=== PATIENT | female | born 1965 | race Caucasian/White ===

== ENCOUNTER 2016-12-11 03:03 | Emergency (ER) | payer BC ==
[2016-12-11] MEDS ORDERED: Ketorolac 60 MG/2 ML SDV IM ONE (04:09)
--- NOTE | 2016-12-11 05:16 | EDM.PDOC ---
ED HPI GENERAL MEDICAL PROBLEM - General Chief Complaint: Upper Extremity Injury/Pain Stated Complaint: LEFT ARM INJURY Time Seen by Provider: 12/11/16 05:15 Source of Information: Reports: Patient - History of Present Illness INITIAL COMMENTS - FREE TEXT/NARRATIVE: HISTORY AND PHYSICAL: History of present illness: []Patient was doing some yard work today and now complains of left hand pain and swelling she states pain is 6 out of 10 nonradiating involving hand worsened with movement or making a fist there is no injury or trauma no redness warmth or swelling no open lesion or exudates No other symptomology such as fever nausea vomiting chills sweats no chest pain shortness breath headache dizziness palpitation about a urine symptoms Patient seems to exaggerate pain medicines on arrival for exam she was sitting calm is a rounded the corner into her room but began to groan as she noticed I was there to examine her. Also during the exam her abdomen was quite tender to the touch however with distraction and conversation outside of her hand pain she would hit the arm of the chair with the affected hand without any pain She sees Dr. Sorensen for chronic pain Review of systems: As per history of present illness and below otherwise all systems reviewed and negative. Past medical history: As per history of present illness and as reviewed below otherwise noncontributory. Surgical history: As per history of present illness and as reviewed below otherwise noncontributory. Social history: No reported history of drug or alcohol abuse. Family history: As per history of present illness and as reviewed below otherwise noncontributory. Physical exam: HEENT: Atraumatic, normocephalic, pupils reactive, negative for conjunctival pallor or scleral icterus, mucous membranes moist, throat clear, neck supple, nontender, trachea midline. Lungs: Clear to auscultation, breath sounds equal bilaterally, chest nontender. Heart: S1S2, regular, negative for clicks, rubs, or JVD. Abdomen: Soft, nondistended, nontender. Negative for masses or hepatosplenomegaly. Negative for costovertebral tenderness. Pelvis: Stable nontender. Genitourinary: Deferred. Rectal: Deferred. Extremities: Atraumatic, negative for cords or calf pain. Neurovascular unremarkable. Neuro: Awake, alert, oriented. Cranial nerves II through XII unremarkable. Cerebellum unremarkable. Motor and sensory unremarkable throughout. Exam nonfocal. Diagnostics: []X-ray left hand CBC, uric acid, CRP Therapeutics: []Toradol 60 IM Rest ice Toradol 10 mg by mouth 3 times a day when necessary #15 no refill Splint Impression: []Left hand pain Definitive disposition and diagnosis as appropriate pending reevaluation and review of above. left hand Pain Score (Numeric/FACES): 10 - Related Data Allergies Allergy/AdvReac Type Severity Reaction Status Date / Time Oral steroid Allergy Disorientat Uncoded 12/11/16 03:14 ion Home Meds: Home Meds ALPRAZolam [Xanax] 0.25 mg PO ASDIRECTED 12/11/16 [History] Orphenadrine [Norflex] 100 mg PO DAILY 12/11/16 [History] Sertraline [Zoloft] 50 mg PO DAILY 12/11/16 [History] Past Medical History - Past Health History Medical/Surgical History: Denies Medical/Surgical History Cardiovascular History: Reports: None Respiratory History: Reports: None Gastrointestinal History: Reports: None Genitourinary History: Reports: None [employer] 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 Musculoskeletal History: hx: Fracturing Tailbone Neurological History: Reports: None Psychiatric History: Reports: Anxiety, Depression Endocrine/Metabolic History: Reports: None Hematologic History: Reports: None Immunologic History: Reports: None Oncologic (Cancer) History: Reports: None Dermatologic History: Reports: None - Infectious Disease History Infectious Disease History: Reports: Chicken Pox, Measles, Mumps - Past Surgical History Head Surgeries/Procedures: Reports: None GI Surgical History: Reports: Cholecystectomy Other GI Surgeries/Procedures: Lap Cholecystectomy, Abdominoplasty about 1 year ago Female Surgical History: Reports: Hysterectomy Other Female Surgeries/Procedures: Laparoscopic Hysterectomy Social & Family History - Family History Family Medical History: Noncontributory - Tobacco Use Smoking Status *Q: Never Smoker Years of Tobacco use: 1 - Caffeine Use Caffeine Use: Reports: Soda - Alcohol Use Days Per Week of Alcohol Use: 1 Number of Drinks Per Day: 1 Total Drinks Per Week: 1 - Recreational Drug Use Recreational Drug Use: No Drug Use in Last 12 Months: No Review of Systems - Review of Systems Review Of Systems: ROS reveals no pertinent complaints other than HPI. ED EXAM, GENERAL - Physical Exam Exam: See Below Course - Vital Signs Last Recorded V/S: Last Vital Signs Temp 36.4 C 12/11/16 03:14 Pulse 77 12/11/16 03:14 Resp 18 12/11/16 03:14 BP 166/91 H 12/11/16 03:14 Pulse Ox 98 12/11/16 03:14 - Orders/Labs/Meds Orders: Active Orders 24 hr Category Date Time Status Hand 2V Lt [CR] Stat Exams 12/11/16 03:15 Taken Labs: Laboratory Tests 12/11/16 12/11/16 Range/Units 04:18 04:18 WBC 8.84 (4.0-11.0) K/uL RBC 4.50 (4.30-5.90) M/uL Hgb 13.7 (12.0-16.0) g/dL Hct 40.8 (36.0-46.0) % MCV 90.7 (80.0-98.0) fL MCH 30.4 (27.0-32.0) pg MCHC 33.6 (31.0-37.0) g/dL RDW Std Deviation 47.5 (28.0-62.0) fl RDW Coeff of Justine 14 (11.0-15.0) % Plt Count 168 (150-400) K/uL MPV 9.80 (7.40-12.00) fL Neut % (Auto) 77.8 (48.0-80.0) % Lymph % (Auto) 14.3 L (16.0-40.0) % [place] % (Auto) 6.3 (0.0-15.0) % Eos % (Auto) 1.4 (0.0-7.0) % Baso % (Auto) 0.2 (0.0-1.5) % Neut # (Auto) 6.9 H (1.4-5.7) K/uL Lymph # (Auto) 1.3 (0.6-2.4) K/uL [place] # (Auto) 0.6 (0.0-0.8) K/uL Eos # (Auto) 0.1 (0.0-0.7) K/uL Baso # (Auto) 0.0 (0.0-0.1) K/uL Nucleated RBC % 0.0 /100WBC Nucleated RBCs # 0 K/uL Uric Acid 5.1 (2.1-6.2) mg/dL C-Reactive Protein 0.11 (0.0-0.5) mg/dL Meds: Medications Discontinued Medications Generic Name Dose Route Start Last Admin Trade Name Anne PRMadan Reason Stop Dose Admin Ketorolac Tromethamine 60 mg 12/11/16 04:09 12/11/16 04:23 Toradol IM 12/11/16 04:10 60 mg ONETIME ONE Administration Departure - Departure Time of Disposition: 05:19 Disposition: Home, Self-Care 01 Condition: Good Clinical Impression: Left hand pain - Discharge Information Forms: ED Department Discharge Additional Instructions: Splint for comfort Medication as prescribed Rest Ice 20 minute intervals 3 times daily Follow-up with primary care in 2 weeks sooner as needed The following information is given to patients seen in the emergency department who are being discharged to home. This information is to outline your options for follow-up care. We provide all patients seen in our emergency department with a follow-up referral. The need for follow-up, as well as the timing and circumstances, are variable depending upon the specifics of your emergency department visit. If you don't have a primary care physician on staff, we will provide you with a referral. We always advise you to contact your personal physician following an emergency department visit to inform them of the circumstance of the visit and for follow-up with them and/or the need for any referrals to a consulting specialist. The emergency department will also refer you to a specialist when appropriate. This referral assures that you have the opportunity for follow-up care with a specialist. All of these measure are taken in an effort to provide you with optimal care, which includes your follow-up. Under all circumstances we always encourage you to contact your private physician who remains a resource for coordinating your care. When calling for follow-up care, please make the office aware that this follow-up is from your recent emergency room visit. If for any reason you are refused follow-up, please contact the [facility] emergency department at and asked to speak to the emergency department charge nurse. - My Orders Last 24 Hours: My Active Orders 12/11/16 03:15 Hand 2V Lt [CR] Stat - Assessment/Plan Last 24 Hours: My Active Orders 12/11/16 03:15 Hand 2V Lt [CR] Stat
[2016-12-11 05:34] VITALS: BP 136/76
--- NOTE | 2016-12-12 12:35 | CR ---
EXAM DATE: 12/11/16 PATIENT'S AGE: 51 Patient: MADDIE KUMAR Facility: [place], [place] Site . Site : [id number] Study: XRay Extremity Left [id number]/13/2017 3:25:52 AM Ordering Physician: Doctor Orlando Final Report: Indication: Hand/wrist swelling. No injury. Technique: Left hand two views. Comparison: None. Findings: No acute fracture or dislocation. No discrete lytic or sclerotic osseous lesions. There is soft tissue swelling about the wrist. No radiopaque foreign body evident. Impression: No acute or suspicious osseous abnormality. Soft tissue swelling about the wrist. Dictated by Joe Gutierrez MD @ 12/11/2016 3:35:07 AM Dictated by: Joe Gutierrez MD @ 12/11/2016 03:35:15 (Electronic Signature) Report Signed by Proxy. MTDAnkita
== END 2016-12-11 05:33 | disposition home or self-care (01) ==
LOC: MW.ED 03:03
DX: M79.642 Pain in left hand (principal); F41.9 Anxiety disorder, unspecified; F32.9 Major depressive disorder, single episode, unspecified; Z90.49 Acquired absence of other specified parts of digestive tract; Z79.899 Other long term (current) drug therapy; Z90.710 Acquired absence of both cervix and uterus
CPT/HCPCS: 36415; 73120; 84550; 85025; 86140; 96372; 99283; J1885

== ENCOUNTER 2019-05-23 20:39 | Observation (INO) | payer BC, OTHER ==
[2019-05-23] MEDS ORDERED: Ondansetron 4 MG/2 ML SDV IVPUSH ONE (22:02)
[2019-05-23] MEDS ORDERED: Sodium Chloride 0.9% 1,000 ML IV ONE ×2 (22:02→23:53)
[2019-05-23] MEDS ORDERED: Morphine 4 MG/ML Syringe IVPUSH ONE (22:04)
[2019-05-23 22:18] LABS: BLOOD UREA NITROGEN,BUN 18 mg/dL (7.0-18.0); CARBON DIOXIDE,CO2 23.9 mmol/L (21.0-32.0); CHLORIDE,CL 108 mmol/L (98-107); GLUCOSE RANDOM 97 mg/dL (74-106); LIPASE 588 U/L (73-393); SODIUM,NA 143 mmol/L (136-145)
[2019-05-23] MEDS ORDERED: Iopamidol 755 MG/ML 500 ML Multipack Bottle IVPUSH ONE (22:57)
--- NOTE | 2019-05-23 23:20 | CT ---
INDICATION: Left lower back pain radiating to lower abdomen TECHNIQUE: CT Abdomen and pelvis with i.v. contrast. Coronal and sagittal reformats were obtained. CONTRAST: 100 mL Isovue 370 COMPARISON: 08/18/2013 FINDINGS: Lower chest: There is a calcified granuloma measuring 11 mm seen in the medial left lower lobe. Liver: Unremarkable. Spleen: Moderate stable splenomegaly is noted with the spleen measuring 14.2 cm. Pancreas: Unremarkable. Gallbladder: Previous cholecystectomy noted without significant intra- or extrahepatic biliary ductal dilatation seen. Kidney: Small cortical cysts are present within the right kidney measuring less than 1 cm. Adrenal: Unremarkable. Bowel: Unremarkable. The appendix is normal in appearance and size. Vascular: Unremarkable. Lymph: Unremarkable. Peritoneum: Unremarkable. No pneumoperitoneum is seen. No significant ascites is noted. Pelvis: The patient is status post prior hysterectomy. Soft tissue: Unremarkable. Bone: There is a stable sclerotic lesion measuring 1.3 cm and the left acetabular roof, likely a bone island. IMPRESSION: 1. Moderate stable splenomegaly is noted with the spleen measuring 14.2 cm. Dictated by Mono Estrada MD @ 05/23/2019 11:17:58 PM Please note that all CT scans at this facility use dose modulation, iterative reconstruction, and/or weight-based dosing when appropriate to reduce radiation dose to as low as reasonably achievable. Dictated by: Mono Estrada MD @ 05/23/2019 23:18:30 (Electronically Signed)
--- NOTE | 2019-05-23 23:57 | EDM.PDOC ---
ED HPI GENERAL MEDICAL PROBLEM - General Chief Complaint: Abdominal Pain Stated Complaint: SEVERE BACK PAIN AND CRAMPING Time Seen by Provider: 05/23/19 21:30 - History of Present Illness INITIAL COMMENTS - FREE TEXT/NARRATIVE: Pt with pmh of chronic nausea and GERD presents 2 days of progressively worsening upper abdominal pain and back pain associated with nausea and vomiting. NO fevers or any other symptoms Left Back Pain Score (Numeric/FACES): 10 - Related Data Allergies Allergy/AdvReac Type Severity Reaction Status Date / Time Oral steroid Allergy Disorientat Uncoded 05/23/19 21:21 ion Home Meds: Home Meds Losartan/Hydrochlorothiazide [Losartan-HCTZ 50-12.5 MG] 1 each PO DAILY [History] Ondansetron HCl [Zofran] 8 mg PO ASDIRECTED 05/23/19 [History] Ranitidine HCl [Ranitidine] 300 mg PO BEDTIME 05/23/19 [History] Past Medical History - Past Health History Medical/Surgical History: Denies Medical/Surgical History HEENT History: Reports: None Cardiovascular History: Reports: [place] Respiratory History: Reports: None Gastrointestinal History: Reports: None Genitourinary History: Reports: None 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 Musculoskeletal History: hx: Fracturing Tailbone Neurological History: Reports: None Psychiatric History: Reports: Anxiety, Depression Endocrine/Metabolic History: Reports: None Hematologic History: Reports: None Immunologic History: Reports: None Oncologic (Cancer) History: Reports: None Dermatologic History: Reports: None - Infectious Disease History Infectious Disease History: Reports: None - Past Surgical History Head Surgeries/Procedures: Reports: None GI Surgical History: Reports: Cholecystectomy Female Surgical History: Reports: Hysterectomy Social & Family History - Family History Family Medical History: Noncontributory - Tobacco Use Smoking Status *Q: Current Every Day Smoker Years of Tobacco use: 6 Packs/Tins Daily: 0.1 - Caffeine Use Caffeine Use: Reports: Soda - Recreational Drug Use Recreational Drug Use: Yes Drug Use in Last 12 Months: Yes Recreational Drug Type: Reports: Marijuana/Hashish Recreational Drug Use Frequency: Daily ED ROS GENERAL - Review of Systems Review Of Systems: See Below Constitutional: Reports: Fatigue HEENT: Reports: No Symptoms Respiratory: Reports: No Symptoms Cardiovascular: Reports: No Symptoms GI/Abdominal: Reports: Abdominal Pain, Nausea, Vomiting Musculoskeletal: Reports: Back Pain Skin: Reports: No Symptoms Neurological: Reports: No Symptoms ED EXAM, GI/ABD - Physical Exam Exam: See Below General Appearance: Alert, No Apparent Distress Head: Atraumatic, Normocephalic Respiratory/Chest: No Respiratory Distress, Lungs Clear, Normal Breath Sounds Cardiovascular: Normal Peripheral Pulses, Regular Rate, Rhythm, No Edema GI/Abdominal Exam: Tender. No: Rigid, Rebound Back Exam: Other (muscle tenderness) Skin Exam: Warm, Dry, Intact Course - Vital Signs Last Recorded V/S: Last Vital Signs Temp 97.7 F 05/23/19 21:19 Pulse 57 L 05/23/19 23:11 Resp 18 05/23/19 23:11 BP 137/82 05/23/19 23:11 Pulse Ox 98 05/23/19 23:11 - Orders/Labs/Meds Labs: Laboratory Tests 05/23/19 05/23/19 05/23/19 Range/Units 20:50 21:35 21:35 WBC 7.28 (4.0-11.0) K/uL RBC 4.60 (4.30-5.90) M/uL Hgb 14.1 (12.0-16.0) g/dL Hct 41.4 (36.0-46.0) % MCV 90.0 (80.0-98.0) fL MCH 30.7 (27.0-32.0) pg MCHC 34.1 (31.0-37.0) g/dL RDW Std Deviation 46.6 (28.0-62.0) fl RDW Coeff of Justine 14 (11.0-15.0) % Plt Count 222 (150-400) K/uL MPV 10.10 (7.40-12.00) fL Neut % (Auto) 63.7 (48.0-80.0) % Lymph % (Auto) 27.7 (16.0-40.0) % [place] % (Auto) 6.2 (0.0-15.0) % Eos % (Auto) 2.1 (0.0-7.0) % Baso % (Auto) 0.3 (0.0-1.5) % Neut # (Auto) 4.6 (1.4-5.7) K/uL Lymph # (Auto) 2.0 (0.6-2.4) K/uL [place] # (Auto) 0.5 (0.0-0.8) K/uL Eos # (Auto) 0.2 (0.0-0.7) K/uL Baso # (Auto) 0.0 (0.0-0.1) K/uL Nucleated RBC % 0.0 /100WBC Nucleated RBCs # 0 K/uL Sodium 143 (136-145) mmol/L Potassium 4.0 (3.5-5.1) mmol/L Chloride 108 H (98-107) mmol/L Carbon Dioxide 23.9 (21.0-32.0) mmol/L BUN 18 (7.0-18.0) mg/dL Creatinine 0.8 (0.6-1.0) mg/dL Est Cr Clr Drug Dosing 59.09 mL/min Estimated GFR (MDRD) > 60.0 ml/min Glucose 97 (74-106) mg/dL Calcium 8.8 (8.5-10.1) mg/dL Total Bilirubin 0.3 (0.2-1.0) mg/dL AST 20 (15-37) IU/L ALT 43 (14-63) IU/L Alkaline Phosphatase 50 (46-116) U/L Total Protein 7.0 (6.4-8.2) g/dL Albumin 3.6 (3.4-5.0) g/dL Globulin 3.4 (2.6-4.0) g/dL Albumin/Globulin Ratio 1.1 (0.9-1.6) Lipase 588 H (73-393) U/L Urine Color YELLOW Urine Appearance CLEAR Urine pH 5.5 (5.0-8.0) Ur Specific [place] 1.025 (1.001-1.035) Urine Protein NEGATIVE (NEGATIVE) mg/dL Urine Glucose (UA) NEGATIVE (NEGATIVE) mg/dL Urine Ketones NEGATIVE (NEGATIVE) mg/dL Urine Occult Blood NEGATIVE (NEGATIVE) Urine Nitrite NEGATIVE (NEGATIVE) Urine Bilirubin NEGATIVE (NEGATIVE) Urine Urobilinogen 0.2 (<2.0) EU/dL Ur Leukocyte Esterase NEGATIVE (NEGATIVE) Meds: Medications Discontinued Medications Generic Name Dose Route Start Last Admin Trade Name Freq PRN Reason Stop Dose Admin Sodium Chloride 1,000 mls @ 999 mls/hr 05/23/19 22:02 05/23/19 22:18 Normal Saline IV 05/23/19 23:02 999 mls/hr BOLUS ONE Administration Iopamidol 100 ml 05/23/19 22:57 05/23/19 22:58 Isovue Multipack-370 (76%) IVPUSH 05/23/19 22:58 100 ml ONETIME ONE Administration Morphine Sulfate 4 mg 05/23/19 22:04 05/23/19 22:18 Morphine IVPUSH 05/23/19 22:05 4 mg ONETIME ONE Administration Ondansetron HCl 4 mg 05/23/19 22:02 05/23/19 22:19 Zofran IVPUSH 05/23/19 22:03 4 mg ONETIME ONE Administration Departure - Departure Time of Disposition: 23:59 Disposition: Refer to Observation Condition: Good Clinical Impression: Acute pancreatitis - Discharge Information *PRESCRIPTION DRUG MONITORING PROGRAM REVIEWED*: Not Applicable *COPY OF PRESCRIPTION DRUG MONITORING REPORT IN PATIENT BHARATH: Not Applicable Referrals: PCP,None [Primary Care Provider] - Sepsis Event Note - Evaluation Sepsis Screening Result: No Definite Risk - Focused Exam Vital Signs: Vital Signs Temp Pulse Resp BP Pulse Ox 05/23/19 23:11 57 L 18 137/82 98 05/23/19 21:19 97.7 F 60 16 137/91 H 97 Date Exam was Performed: 05/23/19 Time Exam was Performed: 23:46
[2019-05-24] MEDS ORDERED: Pantoprazole 40 MG in Sodium Chloride 0.9% 10 ML IV ONE (00:22)
[2019-05-24] MEDS: Morphine 10 MG/ML Syringe IVPUSH PRN ×3 (00:52→06:24)
[2019-05-24] MEDS: Sodium Chloride 0.9% 1,000 ML IV SCH ×4 (02:04→17:37)
[2019-05-24] MEDS: Ondansetron 4 MG/2 ML SDV IVPUSH PRN ×4 (04:15→19:15)
[2019-05-24 06:17] LABS: BLOOD UREA NITROGEN,BUN 13 mg/dL (7.0-18.0); CARBON DIOXIDE,CO2 22.4 mmol/L (21.0-32.0); CHLORIDE,CL 111 mmol/L (98-107); GLUCOSE RANDOM 94 mg/dL (74-106); POTASSIUM,K 4.2 mmol/L (3.5-5.1); SODIUM,NA 143 mmol/L (136-145)
--- NOTE | 2019-05-24 09:11 | US ---
Limited abdominal ultrasound: Multiple real-time images of the upper right abdomen were obtained. Comparison: Prior CT abdomen and pelvis exam of 05/23/19. Liver is echogenic. No focal abnormality is appreciated within the liver. Previous cholecystectomy is noted. Common bile duct not well seen but no biliary duct dilatation is appreciated. Right kidney shows no hydronephrosis or mass. Right kidney has a length of 10.8 cm. Right kidney shows a small cyst measuring 6 mm. Pancreas is incompletely seen. Visualized portions of the pancreas shows no discrete abnormality. Impression: 1. Probable fatty infiltration within the liver. 2. Previous cholecystectomy with no biliary duct dilatation being seen. 3. Small renal cyst. 4. No additional abnormality is appreciated. Diagnostic code #2 This report was dictated in [place] Standard Time
--- NOTE | 2019-05-24 09:12 | PCM.HP.2 ---
H&P History of Present Illness - General Date of Service: 05/24/19 Admit Problem/Dx: Admission Diagnosis/Problem Admission Diagnosis/Problem Acute pancreatitis - History of Present Illness Initial Comments - Free Text/Narative: The patient is 54 year old female with PMH of HTN, GERD, anxiety/depression who presented to the ER with several day history of sharp middle/left sided abdominal pain and left lower back pain. She has associated nausea but no vomiting and loose stool. No black/bloody stool. Reports hx of chronic nausea , was on several anti-emetic but is now on medical marijuana. Denies fever/ chills, chest pain, shortness of breath. Doesn't drink on a regular basis, last drink was on New Year's [place]. Previous cholecystectomy. Denies hx of pancreatitis. In the ER, CBC and CMP wnl, lipase was elevated at 588, lipid panel showed TG 181, UA was negative. CT ab/pelvis showed stable splenomegaly but pancreas involvement. IN the ER she was given 2 L fluid bolus, Zofran, and morphine. PCP- Baylee Vides Left Back Pain Score (Numeric/FACES): 8 - Related Data Allergies/Adverse Reactions: Allergies Allergy/AdvReac Type Severity Reaction Status Date / Time Oral steroid Allergy Disorientat Uncoded 05/24/19 10:11 ion Home Medications: Home Meds Losartan/Hydrochlorothiazide [Losartan-HCTZ 50-12.5 MG] 1 each PO DAILY [History] Ondansetron HCl [Zofran] 8 mg PO ASDIRECTED 05/23/19 [History] Ranitidine HCl [Ranitidine] 300 mg PO BEDTIME 05/23/19 [History] Past Medical History - Past Health History Medical/Surgical History: Denies Medical/Surgical History HEENT History: Reports: None Cardiovascular History: Reports: [place] Respiratory History: Reports: None Gastrointestinal History: Reports: None Genitourinary History: Reports: None TEAROOM HOSTESS History: Reports: Other Musculoskeletal History: hx: Fracturing Tailbone Neurological History: Reports: None Psychiatric History: Reports: Anxiety, Depression Endocrine/Metabolic History: Reports: None Hematologic History: Reports: None Immunologic History: Reports: None Oncologic (Cancer) History: Reports: None Dermatologic History: Reports: None - Infectious Disease History Infectious Disease History: Reports: Chicken Pox, Measles, Mumps - Past Surgical History Head Surgeries/Procedures: Reports: None GI Surgical History: Reports: Cholecystectomy Female Surgical History: Reports: Hysterectomy Social & Family History - Family History Family Medical History: Noncontributory - Tobacco Use Smoking Status *Q: Former Smoker Years of Tobacco use: 6 Packs/Tins Daily: 0.1 Used Tobacco, but Quit: No Second Hand Smoke Exposure: No - Caffeine Use Caffeine Use: Reports: Soda - Alcohol Use Number of Drinks Per Day: 1 Date of Last Drink: 04/30/19 Time of Last Drink: 00:00 - Recreational Drug Use Recreational Drug Use: No Drug Use in Last 12 Months: Yes Recreational Drug Type: Reports: Marijuana/Hashish Recreational Drug Use Frequency: Daily H&P Review of Systems - Review of Systems: Review Of Systems: See Below General: Reports: No Symptoms HEENT: Reports: No Symptoms Pulmonary: Reports: No Symptoms Cardiovascular: Reports: No Symptoms Gastrointestinal: Reports: Abdominal Pain, Nausea. Denies: Black Stool, Bloody Stool, Vomiting Genitourinary: Reports: No Symptoms Musculoskeletal: Reports: No Symptoms Skin: Reports: No Symptoms Psychiatric: Reports: No Symptoms Neurological: Reports: No Symptoms Hematologic/Lymphatic: Reports: No Symptoms Immunologic: Reports: No Symptoms Exam - Exam Exam: See Below - Vital Signs Vital Signs: Last Vital Signs Temp 97.8 F 05/24/19 04:00 Pulse 60 05/24/19 04:00 Resp 16 05/24/19 04:00 BP 108/70 05/24/19 04:00 Pulse Ox 96 05/24/19 04:00 Weight: 82.554 kg - Exam General: Alert, Oriented HEENT: Conjunctiva Clear, EOMI, Mucosa Moist & [place], Posterior Pharynx Clear, Pupils Equal, Pupils Reactive Lungs: Clear to Auscultation, Normal Respiratory Effort Cardiovascular: Regular Rate, Regular Rhythm GI/Abdominal Exam: Normal Bowel Sounds, Soft, Tender (left side). No: Guarding , Rigid, Rebound Extremities: No Pedal Edema Skin: Warm, Dry, Intact Psychiatric: Alert, Normal Affect, Normal Mood - Patient Data Lab Results Last 24 hrs: Laboratory Results - last 24 hr 05/10/19 05/23/19 05/23/19 Range/Units 21:35 20:50 21:35 WBC 7.28 (4.0-11.0) K/uL RBC 4.60 (4.30-5.90) M/uL Hgb 14.1 (12.0-16.0) g/dL Hct 41.4 (36.0-46.0) % MCV 90.0 (80.0-98.0) fL MCH 30.7 (27.0-32.0) pg MCHC 34.1 (31.0-37.0) g/dL RDW Std Deviation 46.6 (28.0-62.0) fl RDW Coeff of Justine 14 (11.0-15.0) % Plt Count 222 (150-400) K/uL MPV 10.10 (7.40-12.00) fL Neut % (Auto) 63.7 (48.0-80.0) % Lymph % (Auto) 27.7 (16.0-40.0) % [place] % (Auto) 6.2 (0.0-15.0) % Eos % (Auto) 2.1 (0.0-7.0) % Baso % (Auto) 0.3 (0.0-1.5) % Neut # (Auto) 4.6 (1.4-5.7) K/uL Lymph # (Auto) 2.0 (0.6-2.4) K/uL [place] # (Auto) 0.5 (0.0-0.8) K/uL Eos # (Auto) 0.2 (0.0-0.7) K/uL Baso # (Auto) 0.0 (0.0-0.1) K/uL Nucleated RBC % 0.0 /100WBC Nucleated RBCs # 0 K/uL Sodium (136-145) mmol/L Potassium (3.5-5.1) mmol/L Chloride (98-107) mmol/L Carbon Dioxide (21.0-32.0) mmol/L BUN (7.0-18.0) mg/dL Creatinine (0.6-1.0) mg/dL Est Cr Clr Drug Dosing mL/min Estimated GFR (MDRD) ml/min Glucose (74-106) mg/dL Calcium (8.5-10.1) mg/dL Total Bilirubin (0.2-1.0) mg/dL AST (15-37) IU/L ALT (14-63) IU/L Alkaline Phosphatase (46-116) U/L Total Protein (6.4-8.2) g/dL Albumin (3.4-5.0) g/dL Globulin (2.6-4.0) g/dL Albumin/Globulin Ratio (0.9-1.6) Triglycerides 181 (0-200) mg/dL Cholesterol 188 (50-200) mg/dL LDL Cholesterol, Calc 117 (60-180) mg/dL VLDL Cholesterol 36 (5-55) mg/dL HDL Cholesterol 35 L (40-60) mg/dL Cholesterol/HDL Ratio 5.4 (3.3-6.0) Lipase (73-393) U/L Urine Color YELLOW Urine Appearance CLEAR Urine pH 5.5 (5.0-8.0) Ur Specific [place] 1.025 (1.001-1.035) Urine Protein NEGATIVE (NEGATIVE) mg/dL Urine Glucose (UA) NEGATIVE (NEGATIVE) mg/dL Urine Ketones NEGATIVE (NEGATIVE) mg/dL Urine Occult Blood NEGATIVE (NEGATIVE) Urine Nitrite NEGATIVE (NEGATIVE) Urine Bilirubin NEGATIVE (NEGATIVE) Urine Urobilinogen 0.2 (<2.0) EU/dL Ur Leukocyte Esterase NEGATIVE (NEGATIVE) 05/23/19 05/24/19 05/24/19 Range/Units 21:35 05:38 05:38 WBC 6.44 (4.0-11.0) K/uL RBC 4.23 L (4.30-5.90) M/uL Hgb 12.7 (12.0-16.0) g/dL Hct 38.7 (36.0-46.0) % MCV 91.5 (80.0-98.0) fL MCH 30.0 (27.0-32.0) pg MCHC 32.8 (31.0-37.0) g/dL RDW Std Deviation 47.6 (28.0-62.0) fl RDW Coeff of Justine 15 (11.0-15.0) % Plt Count 185 (150-400) K/uL MPV 10.50 (7.40-12.00) fL Neut % (Auto) 64.6 (48.0-80.0) % Lymph % (Auto) 26.7 (16.0-40.0) % [place] % (Auto) 6.2 (0.0-15.0) % Eos % (Auto) 2.2 (0.0-7.0) % Baso % (Auto) 0.3 (0.0-1.5) % Neut # (Auto) 4.2 (1.4-5.7) K/uL Lymph # (Auto) 1.7 (0.6-2.4) K/uL [place] # (Auto) 0.4 (0.0-0.8) K/uL Eos # (Auto) 0.1 (0.0-0.7) K/uL Baso # (Auto) 0.0 (0.0-0.1) K/uL Nucleated RBC % 0.0 /100WBC Nucleated RBCs # 0 K/uL Sodium 143 143 (136-145) mmol/L Potassium 4.0 4.2 (3.5-5.1) mmol/L Chloride 108 H 111 H (98-107) mmol/L Carbon Dioxide 23.9 22.4 (21.0-32.0) mmol/L BUN 18 13 (7.0-18.0) mg/dL Creatinine 0.8 0.8 (0.6-1.0) mg/dL Est Cr Clr Drug Dosing 59.09 59.09 mL/min Estimated GFR (MDRD) > 60.0 > 60.0 ml/min Glucose 97 94 (74-106) mg/dL Calcium 8.8 7.4 L (8.5-10.1) mg/dL Total Bilirubin 0.3 0.3 (0.2-1.0) mg/dL AST 20 31 (15-37) IU/L ALT 43 55 (14-63) IU/L Alkaline Phosphatase 50 44 L (46-116) U/L Total Protein 7.0 5.9 L (6.4-8.2) g/dL Albumin 3.6 3.0 L (3.4-5.0) g/dL Globulin 3.4 2.9 (2.6-4.0) g/dL Albumin/Globulin Ratio 1.1 1.0 (0.9-1.6) Triglycerides (0-200) mg/dL Cholesterol (50-200) mg/dL LDL Cholesterol, Calc (60-180) mg/dL VLDL Cholesterol (5-55) mg/dL HDL Cholesterol (40-60) mg/dL Cholesterol/HDL Ratio (3.3-6.0) Lipase 588 H (73-393) U/L Urine Color Urine Appearance Urine pH (5.0-8.0) Ur Specific [place] (1.001-1.035) Urine Protein (NEGATIVE) mg/dL Urine Glucose (UA) (NEGATIVE) mg/dL Urine Ketones (NEGATIVE) mg/dL Urine Occult Blood (NEGATIVE) Urine Nitrite (NEGATIVE) Urine Bilirubin (NEGATIVE) Urine Urobilinogen (<2.0) EU/dL Ur Leukocyte Esterase (NEGATIVE) Result Diagrams: 05/24/19 05:38 05/24/19 05:38 Sepsis Event Note - Evaluation Sepsis Screening Result: No Definite Risk - Focused Exam Vital Signs: Vital Signs Temp Pulse Resp BP Pulse Ox Pulse Ox 05/24/19 04:00 97.8 F 60 16 108/70 96 05/24/19 00:30 97.6 F 60 18 144/77 H 96 96 05/24/19 00:00 61 19 142/73 H 97 05/23/19 23:11 57 L 18 137/82 98 05/23/19 21:19 97.7 F 60 16 137/91 H 97 Date Exam was Performed: 05/24/19 Time Exam was Performed: 10:26 Problem List Initiated/Reviewed/Updated: Yes Orders Last 24hrs: Active Orders 24 hr Category Date Time Status Admission Status [Patient Status] [ADT] Stat ADT 05/23/19 23:54 Active Antiembolic Devices [RC] PER UNIT ROUTINE Care 05/23/19 23:55 Active Intake and Output Strict [RC] ASDIRECTED Care 05/24/19 07:20 Active Oxygen Therapy [RC] PRN Care 05/23/19 23:54 Active Up ad Danitza [RC] ASDIRECTED Care 05/23/19 23:54 Active VTE/DVT Education [RC] PER UNIT ROUTINE Care 05/23/19 23:54 Active Vital Signs [RC] Q4H Care 05/23/19 23:54 Active Abdomen Ltd [US] AM Exams 05/24/19 05:11 Taken Morphine Med 05/24/19 08:15 Active 2 mg IVPUSH Q2H PRN Ondansetron [Zofran] Med 05/23/19 23:54 Active 4 mg IVPUSH Q4H PRN Sodium Chloride 0.9% [Normal Saline] 1,000 ml Med 05/23/19 23:45 Active IV ASDIRECTED Sequential Compression Device [OM.PC] Per Unit Routine Oth 05/23/19 23:54 Ordered Medication Orders Sodium Chloride (Normal Saline) 1,000 mls @ 200 mls/hr IV ASDIRECTED BERNIE Last Admin: 05/24/19 07:16 Dose: 200 mls/hr Infusion: 05/24/19 07:04 Dose: 200 mls/hr Admin: 05/24/19 02:04 Dose: 200 mls/hr Morphine Sulfate (Morphine) 2 mg IVPUSH Q2H PRN PRN Reason: Pain (severe 7-10) Stop: 05/24/19 23:55 Ondansetron HCl (Zofran) 4 mg IVPUSH Q4H PRN PRN Reason: Nausea Last Admin: 05/24/19 04:15 Dose: 4 mg Assessment/Plan Comment:: 1. Admit for observation 2. Code status- full 3. Vitals per routine 4. I/Os strict 5. Diet- NPO 6. DVT prophylaxis with Lovenox 7. Acute pancreatitis- keep NPO, pain control with morphine, and IVF. US of abdomen showed fatty liver infiltrate but no biliary duct dilation. Repeat lipase today. Will need outpatient follow up with GI. 8. HTN- continue home meds
[2019-05-24] MEDS: Morphine 2 MG/ML Syringe IVPUSH PRN ×5 (09:13→22:41)
[2019-05-24] MEDS: Enoxaparin 40 MG/0.4 ML Syringe SUBCUT SCH (09:59)
[2019-05-24] MEDS ORDERED: Metoclopramide 10 MG/2 ML SDV IVPUSH PRN (15:29)
[2019-05-24] MEDS ORDERED: Pantoprazole 40 MG in Sodium Chloride 0.9% 10 ML IV SCH (15:30)
[2019-05-25] MEDS: Sodium Chloride 0.9% 1,000 ML IV SCH ×3 (00:04→10:22)
[2019-05-25 06:47] LABS: BLOOD UREA NITROGEN,BUN 8 mg/dL (7.0-18.0); CARBON DIOXIDE,CO2 24.6 mmol/L (21.0-32.0); CHLORIDE,CL 109 mmol/L (98-107); GLUCOSE RANDOM 91 mg/dL (74-106); SODIUM,NA 142 mmol/L (136-145)
[2019-05-25] MEDS: Enoxaparin 40 MG/0.4 ML Syringe SUBCUT SCH (09:00)
[2019-05-25] MEDS: Ondansetron 4 MG/2 ML SDV IVPUSH PRN (09:01)
[2019-05-25] MEDS ORDERED: Acetaminophen 325 MG Tab PO PRN (10:54)
[2019-05-25 11:43] VITALS: BP 143/77; PULSE 58
--- NOTE | 2019-05-25 13:01 | PCM.DCSUM1 ---
Discharge Summary - Discharge Data Discharge Date: 05/25/19 Discharge Disposition: Home, Self-Care 01 Condition: Good - Referral to Home Health Primary Care Physician: PCP None - Patient Summary/Data Hospital Course: 54 year old female with PMH of HTN, GERD, anxiety/depression who was admitted for acute pancreatitis. She presented to the ER with several day history of sharp middle/left sided abdominal pain and left lower back pain. Work up included CBC and CMP within normal limits, lipase was elevated at 588, lipid panel showed TG 181, UA was negative. CT ab/pelvis showed stable splenomegaly and no biliary dilation. She was treated with IV fluids and bowel rest. She had improvement in her symptoms and the day of discharge she was tolerating an oral diet. She was discharged home and referred to GI specialist due to the somewhat chronic nature of her symptoms and acute pancreatitis with an unknown etiology. - Patient Instructions Diet: Full Liquid Diet - Discharge Plan *PRESCRIPTION DRUG MONITORING PROGRAM REVIEWED*: Not Applicable *COPY OF PRESCRIPTION DRUG MONITORING REPORT IN PATIENT BHARATH: Not Applicable Home Medications: Home Meds Losartan/Hydrochlorothiazide [Losartan-HCTZ 50-12.5 MG] 1 each PO DAILY [History] Ondansetron HCl [Zofran] 8 mg PO ASDIRECTED 05/23/19 [History] Ranitidine HCl [Ranitidine] 300 mg PO BEDTIME 05/23/19 [History] Patient Handouts: Acute Pancreatitis, [id number] Referrals: [facility] [Outside] Baylee Vides NP [Ordering Only Provider] - 06/06/19 8:00 am - Discharge Summary/Plan Comment DC Time >30 min.: No - Patient Data Vitals - Most Recent: Last Vital Signs Temp 36.3 C 05/25/19 11:42 Pulse 58 L 05/25/19 11:42 Resp 16 05/25/19 11:42 BP 143/77 H 05/25/19 11:42 Pulse Ox 96 05/25/19 11:42 Weight - Most Recent: 82.554 kg I&O - Last 24 hours: Intake & Output 05/24/19 05/25/19 05/25/19 22:59 06:59 14:59 Intake Total 2064 Output Total 1999 Balance 64 Lab Results - Last 24 hrs: Laboratory Results - last 24 hr 05/25/19 05/25/19 Range/Units 06:06 06:06 WBC 6.22 (4.0-11.0) K/uL RBC 4.27 L (4.30-5.90) M/uL Hgb 12.9 (12.0-16.0) g/dL Hct 38.2 (36.0-46.0) % MCV 89.5 (80.0-98.0) fL MCH 30.2 (27.0-32.0) pg MCHC 33.8 (31.0-37.0) g/dL RDW Std Deviation 45.4 (28.0-62.0) fl RDW Coeff of Justine 14 (11.0-15.0) % Plt Count 177 (150-400) K/uL MPV 10.20 (7.40-12.00) fL Neut % (Auto) 69.3 (48.0-80.0) % Lymph % (Auto) 21.7 (16.0-40.0) % [place] % (Auto) 7.4 (0.0-15.0) % Eos % (Auto) 1.4 (0.0-7.0) % Baso % (Auto) 0.2 (0.0-1.5) % Neut # (Auto) 4.3 (1.4-5.7) K/uL Lymph # (Auto) 1.4 (0.6-2.4) K/uL [place] # (Auto) 0.5 (0.0-0.8) K/uL Eos # (Auto) 0.1 (0.0-0.7) K/uL Baso # (Auto) 0.0 (0.0-0.1) K/uL Nucleated RBC % 0.0 /100WBC Nucleated RBCs # 0 K/uL Sodium 142 (136-145) mmol/L Potassium 4.0 (3.5-5.1) mmol/L Chloride 109 H (98-107) mmol/L Carbon Dioxide 24.6 (21.0-32.0) mmol/L BUN 8 (7.0-18.0) mg/dL Creatinine 0.7 (0.6-1.0) mg/dL Est Cr Clr Drug Dosing 67.53 mL/min Estimated GFR (MDRD) > 60.0 ml/min Glucose 91 (74-106) mg/dL Calcium 7.8 L (8.5-10.1) mg/dL Med Orders - Current: Current Medications Acetaminophen (Tylenol) 650 mg PO Q6H PRN PRN Reason: Pain Last Admin: 05/25/19 12:02 Dose: 650 mg Enoxaparin Sodium (Lovenox) 40 mg SUBCUT Q24H [facility] [place] Last Admin: 05/25/19 09:00 Dose: 40 mg Sodium Chloride (Normal Saline) 1,000 mls @ 200 mls/hr IV ASDIRECTED [facility] [place] Last Admin: 05/25/19 10:22 Dose: 200 mls/hr Pantoprazole Sodium 40 mg/ (Sodium Chloride) 10 mls @ 300 mls/hr IV Q24H [facility] [place] Last Admin: 05/24/19 15:53 Dose: 300 mls/hr Metoclopramide HCl (Reglan) 10 mg IVPUSH Q6H PRN PRN Reason: Nausea/Vomiting Last Admin: 05/24/19 22:45 Dose: 10 mg Ondansetron HCl (Zofran) 4 mg IVPUSH Q4H PRN PRN Reason: Nausea Last Admin: 05/25/19 09:01 Dose: 4 mg Discontinued Medications Sodium Chloride (Normal Saline) 1,000 mls @ 999 mls/hr IV BOLUS ONE Stop: 05/23/19 23:02 Last Admin: 05/23/19 22:18 Dose: 999 mls/hr Sodium Chloride (Normal Saline) 1,000 mls @ 999 mls/hr IV .Bolus ONE Stop: 05/24/19 00:53 Last Admin: 05/24/19 00:14 Dose: 999 mls/hr Pantoprazole Sodium 40 mg/ (Sodium Chloride) 10 mls @ 300 mls/hr IV NOW ONE Stop: 05/24/19 00:23 Last Admin: 05/24/19 00:58 Dose: 300 mls/hr Iopamidol (Isovue Multipack-370 (76%)) 100 ml IVPUSH ONETIME ONE Stop: 05/23/19 22:58 Last Admin: 05/23/19 22:58 Dose: 100 ml Morphine Sulfate (Morphine) 4 mg IVPUSH ONETIME ONE Stop: 05/23/19 22:05 Last Admin: 05/23/19 22:18 Dose: 4 mg Morphine Sulfate (Morphine) 2 mg IVPUSH Q2H PRN PRN Reason: Pain (severe 7-10) Stop: 05/24/19 23:55 Last Admin: 05/24/19 06:24 Dose: 2 mg Morphine Sulfate (Morphine) 2 mg IVPUSH Q2H PRN PRN Reason: Pain (severe 7-10) Stop: 05/24/19 23:55 Last Admin: 05/24/19 22:41 Dose: 2 mg Ondansetron HCl (Zofran) 4 mg IVPUSH ONETIME ONE Stop: 05/23/19 22:03 Last Admin: 05/23/19 22:19 Dose: 4 mg
== END 2019-05-25 13:55 | disposition home or self-care (01) ==
LOC: MW.ED 20:39 → MW.MS 23:54
PROVIDERS: ADMIT Internal Medicine; ATTEND Internal Medicine
DX: K85.90 Acute pancreatitis without necrosis or infection, unspecified (principal); I10 Essential (primary) hypertension; K21.9 Gastro-esophageal reflux disease without esophagitis; F41.9 Anxiety disorder, unspecified; F32.9 Major depressive disorder, single episode, unspecified; I25.2 Old myocardial infarction; F17.210 Nicotine dependence, cigarettes, uncomplicated; Z88.8 Allergy status to other drugs, medicaments and biological substances; Z79.899 Other long term (current) drug therapy; Z90.49 Acquired absence of other specified parts of digestive tract
CPT/HCPCS: 36415; 74177; 76705; 80048; 80053; 81003; 83690; 85025; 96361; 96374; 96375; 99285; A9270; C9113; J1650; J2270; J2405; J2765; J7030; J7050; Q9967; 96372; 96376; 99283; G0378